=== PATIENT | male | born 1960 | race Hispanic/Latino ===

== ENCOUNTER 2018-11-24 06:23 | Emergency (ER) | payer OTHER ==
[2018-11-24] MEDS ORDERED: Adacel (T-DAP) 0.5 ML SYRINGE ONE (06:41)
[2018-11-24] MEDS ORDERED: cefTRIAXone\\ROCEPHIN 1 GM VIAL ONE (07:13)
--- NOTE | 2018-11-24 19:12 | RAD ---
LEFT THIRD DIGIT: 11/24/2018 FINDINGS: A longitudinal fracture of the distal phalanx is present, as well as fractures of the terminal tuft. There is partial amputation of the soft tissues at the tip of the finger. The joints appear normal. IMPRESSION: Fracture of the distal phalanx of the third finger. POS: HOME
== END 2018-11-24 08:31 | disposition home or self-care (01) ==
LOC: BURERS 06:23
DX: S68.623A Partial traumatic transphalangeal amputation of left middle finger, initial encounter (principal); S61.215A Laceration without foreign body of left ring finger without damage to nail, initial encounter; F17.200 Nicotine dependence, unspecified, uncomplicated; Z23 Encounter for immunization; W27.8XXA Contact with other nonpowered hand tool, initial encounter; Y99.0 Civilian activity done for income or pay
CPT/HCPCS: 12001; 90471; 90715; 96372; J0696

== ENCOUNTER 2021-04-18 08:15 | Emergency (ER) | payer SELFPAY ==
[2021-04-18 09:15] LABS: Anion Gap 15 mmol/L (10-20); BUN (Urea Nitrogen) 17 mg/dL (8.4-25.7); Calc. Creatinine Clearance 0 mL/min (70-130); Calcium 8.8 mg/dL (7.8-10.44); Carbon Dioxide 20 mmol/L (22-29); Chloride 109 mmol/L (98-107); Glucose 192 mg/dL (70-105); Potassium 3.7 mmol/L (3.5-5.1); Sodium 140 mmol/L (136-145)
[2021-04-18 09:35] LABS: Bilirubin Small (Negative); Blood, Urine Moderate (Negative); Clarity Turbid (Clear); Glucose, Urine (Dipstick) Negative (Negative); Ketone, Urine Negative (Negative); Leukocyte Negative (Negative); Nitrite Negative (Negative); Protein, Urine (Dipstick) > or equal to 300 mg/dL (Neg-Trace)
[2021-04-18 09:36] LABS: pH, Urine 8.5 (5.0-9.0)
[2021-04-18 09:42] LABS: Bacteria/HPF 2+ HPF (None Seen); RBC/HPF Greater than 50 HPF (0-3); Squamous Epithelial 0-3 HPF (0-3); WBC/HPF 0-3 HPF (0-3)
[2021-04-18 09:43] LABS: Triple Phosphate Crystal 2+ HPF (None Seen)
== END 2021-04-18 09:45 | disposition home or self-care (01) ==
LOC: BURERS 08:15
DX: R33.9 Retention of urine, unspecified (principal); Z79.899 Other long term (current) drug therapy; F17.210 Nicotine dependence, cigarettes, uncomplicated
CPT/HCPCS: 36415; 51702; 80048; 81003; 81015; 87086

== ENCOUNTER 2021-05-09 10:44 | Emergency (ER) | payer SELFPAY | END 2021-05-09 11:51 | disposition home or self-care (01) | LOC: BURERS 10:44 | DX: R33.9 Retention of urine, unspecified (principal) | CPT/HCPCS: 51702; 87086 ==